=== PATIENT | female | born 1960 ===

== ENCOUNTER 2023-09-29 08:06 | Day surgery (SDC) | payer BC ==
[~2023-09-29] VITALS: Ht 160 cm; Wt 85.5 kg
[2023-09-29] MEDS ORDERED: [UNRECOGNIZED DRUG - OTHER] (08:23)
[2023-09-29] MEDS ORDERED: PSEUDOEPHEDRINE30 M1 (08:24)
[2023-09-29] MEDS ORDERED: MECL25 (08:24)
[2023-09-29] MEDS ORDERED: Lactated Ringer's 1,000 ML IV ONE ×2 (09:28→10:04)
[2023-09-29] MEDS ORDERED: Lidocaine HCl/Pf 1% 5 ML VIAL ONE (09:28)
[2023-09-29] MEDS ORDERED: propofoL 50 ML IV ONE (09:28)
[2023-09-29] MEDS ORDERED: Ondansetron HCl 2 MG / ML 2ML Vial ONE (10:05)
== END 2023-09-29 10:47 | disposition home or self-care (01) ==
LOC: ORSCSDS 08:06
PROVIDERS: Surgery
PROC: 0DJD8ZZ Inspection of Lower Intestinal Tract, Via Natural or Artificial Opening Endoscopic (ICD-10-PCS; principal; 2023-09-29 09:30)
DX: Z12.11 Encounter for screening for malignant neoplasm of colon (principal); K57.30 Diverticulosis of large intestine without perforation or abscess without bleeding; Z86.010 Personal history of colon polyps; Z85.43 Personal history of malignant neoplasm of ovary; Z85.41 Personal history of malignant neoplasm of cervix uteri; Z87.891 Personal history of nicotine dependence
CPT/HCPCS: J2001; J2405; J2704; J7120